=== PATIENT | male | born 2000 | race Two or more races ===

== ENCOUNTER 2024-09-10 00:06 | Emergency (ER) | payer MEDICAID, SELFPAY ==
[2024-09-10 00:07] VITALS: BMI 22.3
[2024-09-10 00:57] VITALS: BP 141/91; PULSE 93; RESP 20; TEMP 36.7; O2SAT 98
--- NOTE | 2024-09-10 01:05 | PD.EDABDPN ---
ED Abdominal Pain RME/HPI General Chief Complaint: Abdominal Pain Stated complaint: ABD Time seen by provider: 09/10/24 01:05 Arrival date/time: 09/10/24 00:06 23M with history of daily alcohol use/abuse presents to ED with 1 day of epigastric pain and N/V. Limitations: no limitations Related Data Allergies Allergy/AdvReac Type Severity Reaction Status Date / Time No Known Allergies Allergy Verified 09/10/24 00:09 Review of Systems Review of Systems Systems Reviewed: All systems reviewed, normal except as documented Constitutional Constitutional: Reports system reviewed and no additional complaints, except as documented, Denies fever(s) and Denies headache(s) ENT Ears, Nose, Mouth, and Throat: Denies disequilibrium and Denies headache(s) Cardiovascular Cardiovascular: Reports system reviewed and no additional complaints, except as documented, Denies chest pain and Denies dyspnea Respiratory Respiratory: Reports system reviewed and no additional complaints, except as documented, Denies cough and Denies dyspnea Gastrointestinal Gastrointestinal: Reports system reviewed and no additional complaints, except as documented, Reports as per HPI, Reports abdominal pain, Reports nausea and Reports vomiting Neurologic Neurologic: Reports system reviewed and no additional complaints, except as documented, Denies confusion, Denies disequilibrium and Denies headache(s) Psychiatric Psychiatric: Denies confusion Past Medical History Past Medical History CARDIAC: Negative Cardiac Disorders RESPIRATORY: Negative Asthma GENITOURINARY: Negative Renal Disease ENDOCRINE: Negative Diabetes Mellitus Type 2 HEMATOLOGIC: Negative Sickle Cell Disease Social History SMOKING STATUS: Never smoker ED Exam General Limitations: Present no limitations General appearance: Present alert and in no apparent distress Head Head exam: Present atraumatic Eye Eye exam: Present normal appearance, PERRL and EOMI ENT ENT exam: Present normal exam, normal oropharynx and mucous membranes moist Neck Neck exam: Present normal inspection, full ROM and trachea midline Chest Chest inspection: Present normal inspection and symmetric chest wall rise Respiratory Respiratory exam: Present normal lung sounds bilaterally Cardiovascular Cardiovascular exam: Present regular rate, normal rhythm and normal heart sounds Abdominal Exam Abdominal exam: Present soft and normal bowel sounds Extremities Exam Extremities exam: Present normal inspection and full ROM Back Exam Back exam: Present normal inspection and full ROM Neurological Exam Neurological exam: Present alert, oriented X3 and CN II-XII intact Psychiatric Psychiatric exam: Present normal affect and normal mood Skin Skin exam: Present warm, dry, intact and normal color Course Quality Measures none Orders Category Date Time Status CT Screening NOW Care 09/10/24 03:33 Completed Alcohol, Blood Medical Stat Lab 09/10/24 01:29 Completed CBC Stat Lab 09/10/24 01:29 Completed CMP [Comprehensive Metabolic Panel] Stat Lab 09/10/24 01:29 Completed Drug Screen,Urine Stat Lab 09/10/24 01:18 Completed Lipase Stat Lab 09/10/24 01:29 Completed Acetaminophen Tab [Tylenol Tab] Med 09/10/24 02:37 Discontinued 650 mg PO X1 ONE Diazepam [Valium] Med 09/10/24 03:41 Discontinued 10 mg PO X1 ONE Famotidine [Pepcid] Med 09/10/24 02:38 Discontinued 40 mg PO X1 ONE Ondansetron Odt [Zofran Odt] Med 09/10/24 01:04 Discontinued 4 mg PO X1 ONE mg Hyd/Al Hyd/Rubi Susp [Maalox Susp] Med 09/10/24 01:04 Discontinued 30 ml PO X1 ONE Vital Signs Vital signs: Vital Signs Temperature 98.1 F 09/10/24 00:57 Pulse Rate 93 09/10/24 00:57 Respiratory Rate 20 09/10/24 00:57 Blood Pressure 141/91 H 09/10/24 00:57 Pulse Oximetry (%) 98 09/10/24 00:57 Oxygen Delivery Method Room Air 09/10/24 00:57 O2 at 98% on RA and WNLs Abdominal Pain MDM MDM Narrative MDM Narrative:: 23M with history of daily alcohol use/abuse presents to ED with 1 day of epigastric pain and N/V. Physical exam reveals no ab tenderness. Patient is afebrile, calm, and alert. No leukocytosis. CMP unremarkable. Alcohol +. Tox screen clean. Lipase normal. GI cocktail helped a bit, but Valium helped the most. Likely mild withdrawal despite alcohol still being in his system. Patient data External records reviewed:: None Clinical information provided by:: patient Social determinants that could affect healthcare access:: alcohol use Patient has the following chronic illnesses:: alcohol use How is presenting disease/condition affected by chronic disease/condition?: caused by Evaluation data The following diagnostics were reviewed and interpreted by me:: lab results Lab and/or radiology exams considered but not ordered:: ordered Interpretation Summary: above Medications / Prescriptions Medications or Prescriptions considered but not ordered:: ordered Medication administrations:: Medication Administration History Discontinued Medications Acetaminophen (Acetaminophen 325 Mg Tablet) 650 mg PO X1 ONE Stop: 09/10/24 02:38 Last Admin: 09/10/24 02:40 Dose: 650 mg Documented By: FREEMAN Al Hydrox/Mg Hydrox/Simethicone (Mg Hyd/Al Hyd/Rubi (Maalox Reg) Susp 30 Ml Udc) 30 ml PO X1 ONE Stop: 09/10/24 01:05 Last Admin: 09/10/24 01:13 Dose: 30 ml Documented By: FREEMAN Diazepam (Diazepam 5 Mg Tablet) 10 mg PO X1 ONE Stop: 09/10/24 03:42 Last Admin: 09/10/24 03:47 Dose: 10 mg Documented By: FREEMAN Famotidine (Famotidine 20 Mg Tablet) 40 mg PO X1 ONE Stop: 09/10/24 02:39 Last Admin: 09/10/24 02:41 Dose: 40 mg Documented By: FREEMAN Ondansetron HCl (Ondansetron Odt 4 Mg Tabrap) 4 mg PO X1 ONE; Protocol Stop: 09/10/24 01:05 Last Admin: 09/10/24 01:14 Dose: 4 mg Documented By: FREEMAN above Consultations Consultation(s) initiated? (list below): No Diagnosis Differential diagnosis abdominal pain: abdominal pain, acute appendicitis, calculus of kidney, constipation, diverticulitis, endometriosis, gastroenteritis, pancreatitis, small bowel obstruction and other (alcohol withdrawal) Most likely diagnosis given after review of the tests above:: alcohol withdrawal Admission Indicated Admission indicated?: not indicated Admission Request Was there a request for admission?: No Disposition Plan Disposition Plan: Discharge Discharge Attestation Discharge Attestation: The patient and all family members were given an opportunity to ask questions and understood the discharge instructions. Discharge instructions specifically effects, indications for sooner follow up or return to the emergency department, and the expected course of current diagnosis. Patient condition: Stable Discharge Plan Plan Patient Disposition: HOME (Self Care) Disposition Comment: Stable Prescriptions/Referrals Referrals: No Primary/Family,Physician [Primary Care Provider] - In 1 week Problem List Clinical Impression: Alcohol withdrawal Patient/Caregiver Discharge Instructions Education Materials: Alcohol Withdrawal: What to Expect Additional Instructions: Please follow-up with PCP within 24-48 hours and return immediately if symptoms worsen. Stop drinking alcohol. 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 Toro
[2024-09-10] MEDS: MG HYD/AL HYD/SIME (Maalox Reg) SUSP 30 ML UDC PO (01:13)
[2024-09-10] MEDS: ONDANSETRON ODT 4 MG TABRAP PO (01:14)
[2024-09-10 01:32] LABS: Amphetamine/Methamp Scrn,U Negative (Negative); Barbiturate Screen,Urine Negative (Negative); Benzodiazepines Screen,Urine Negative (Negative); Benzoylecgonine Screen, Ur Negative (Negative); Fentanyl Screen,Urine Negative (Negative); Opiate Screen,Urine Negative (Negative); THC Screen,Urine Negative (Negative)
[2024-09-10 01:48] LABS: Basophils % (Auto) 0 % (0-2.5); Eosinophils # (Auto) 0.2 Thou/mm3 (0.0-0.5); Eosinophils % (Auto) 2 % (0-10); Hematocrit 43.4 % (41.0-53.0); Hemoglobin 15.5 g/dL (13.5-16.0); Immature Granulocytes % (Auto) 0 % (0-0); Immature Granulocytes Auto 0.02 Thou/mm3 (0.00-0.00); Lymphocytes # (Auto) 2.1 Thou/mm3 (1.0-4.8); Lymphocytes % (Auto) 28 % (10-50); Mean Corpuscular HGB Conc 35.7 g/dl (31.0-37.0); Mean Corpuscular Hemoglobin 30.3 pg (25.0-35.0); Mean Corpuscular Volume 85 fL (80-100); Monocytes # (Auto) 0.5 Thou/mm3 (0.0-0.8); Monocytes % (Auto) 7 % (0-12); Neutrophils # (Auto) 4.6 Thou/mm3 (1.8-7.7); Neutrophils % (Auto) 62 % (37-80); Nucleated Red Blood Cell % 0 /100 WBC (0); Platelet Count 269 Thou/mm3 (140-440); RDW Standard Deviation 38.8 fL (35.1-43.9); Red Blood Count 5.12 Miln/mm3 (4.50-5.90); White Blood Count 7.5 Thou/mm3 (3.8-10.6)
[2024-09-10 02:07] LABS: Alanine Aminotransferase 49 U/L (10-49); Albumin/Globulin Ratio 1.7 (1.2-2.2); Alcohol, Blood Medical 140.6 mg/dL (0-10.0); Alkaline Phosphatase 159 U/L (46-116); Anion Gap 9 (7-16); Aspartate Amino Transferase 56 U/L (0-34); BUN/Creatinine Ratio 10 Ratio (12-20); Bilirubin,Total 0.3 mg/dL (0.3-1.2); Blood Urea Nitrogen 8 mg/dL (9-23); Calcium 9.3 mg/dL (8.3-10.6); Calcium (Corrected) 9.3 mg/dL (8.5-10.1); Carbon Dioxide 28.5 mMol/L (20.0-31.0); Chloride 99 mMol/L (98-107); Creatinine (Component) 0.8 mg/dL (0.6-1.3); Estimated Creatinine Clearance 118.8 mL/min (>60); Globulin 2.9 gm/dL (2.3-3.5); Glucose 108 mg/dL (74-106); Lipase 38 U/L (12-53); Osmolality,Calculated 271 (275-295); Potassium 3.6 mMol/L (3.4-5.1); Sodium 136 mMol/L (136-145); Total Protein 7.9 gm/dL (5.7-8.2); eGFR > 60 See Note
[2024-09-10] MEDS: ACETAMINOPHEN 325 MG TABLET 650 MG PO (02:40)
[2024-09-10] MEDS: FAMOTIDINE 20 MG TABLET 40 MG PO (02:41)
[2024-09-10] MEDS: DIAZEPAM 5 MG TABLET 10 MG PO (03:47)
== END 2024-09-10 05:12 | disposition home or self-care (01) ==
PROVIDERS: Physician Assistant; Emergency Provider Emergency Medicine
DX: F10.939 Alcohol use, unspecified with withdrawal, unspecified (principal)
CPT/HCPCS: 36415; 80053; 80307; 80320; 83690; 85025; 99283; Q0162; A9270; G0480